=== PATIENT | female | born 1965 | race Caucasian/White ===

== ENCOUNTER 2020-10-18 16:43 | Outpatient (REF) | payer OTHER, SELFPAY ==
--- NOTE | 2020-10-18 14:25 | PAPFT_PTH ---
PATIENT: Isreal LOC: [facility] U#:[id number] AGE/SX: 55/F ROOM: RE10/18/[address]: NIKOLAS Smith : 1965 BED: DIS: 10/18/2020 SPEC #: [id number] RECD: 10/19/20 12:59 STATUS: BROOKS REDebbie #: [id number] LEONARD: 10/18/20 14:[address]: Petrona Covarrubias DEPT: [facility] Cytology RECD BY: Theresa Donovan Tissues: 1 - CX/ENDOCX FOR PAP SMEARS Procedures: PAP THIN PREP/UVM Screening HPV DNA PROBE Comments: [id number]
== END 2020-10-18 17:03 ==
LOC: LBN 16:43
PROVIDERS: PCP Nurse Practitioner Family; Visit Provider Nurse Practitioner Family
DX: Z12.4 Encounter for screening for malignant neoplasm of cervix (principal); Z11.51 Encounter for screening for human papillomavirus (HPV)
CPT/HCPCS: 88142; 87624

== ENCOUNTER 2020-10-27 04:45 | Outpatient (CLI) | payer OTHER, SELFPAY ==
[2020-10-27 08:04] LABS: Hemoglobin A1C 5.7 % (<5.7)
[2020-10-27 09:02] LABS: Anion Gap 11.1 mmol/L (3-11); BUN 15 mg/dL (7-18); CO2 27.9 mmol/L (21.0-32.0); CREATININE 0.77 mg/dL (0.55-1.02); Calcium 9.1 mg/dL (8.5-10.1); Calculated LDL 204 mg/dL (<100); Chloride 101 mmol/L (98-107); Cholesterol 287 mg/dL (<200); Glucose 95 mg/dL (74-106); HDL Cholesterol 53 mg/dL (40-60); Potassium 4.5 mmol/L (3.5-5.1); Sodium 140 mmol/L (136-145); Triglyceride 150 mg/dL (<150)
[2020-10-28 12:50] LABS: ALT 23 U/L (14-59); AST 14 U/L (15-37); Albumin 3.9 g/dL (3.4-5.0); Alkaline Phosphatase 92 U/L (46-116); Bilirubin, Direct 0.07 mg/dL (0.00-0.20); Bilirubin, Total 0.5 mg/dL (0.2-1.0); Total Protein 7.2 g/dL (6.4-8.2)
== END 2020-10-27 05:05 ==
PROVIDERS: PCP Nurse Practitioner Family; Visit Provider Nurse Practitioner Family
DX: Z00.00 Encounter for general adult medical examination without abnormal findings (principal); E78.5 Hyperlipidemia, unspecified; Z13.1 Encounter for screening for diabetes mellitus
CPT/HCPCS: 36415; 80048; 80061; 80076; 83036

== ENCOUNTER 2020-11-02 00:55 | Outpatient (CLI) | payer OTHER, SELFPAY ==
--- NOTE | 2020-11-02 16:17 | DI.MAMMO_ITS ---
EXAM: MG MAMMO SCREENING CLINICAL HISTORY: screening,Z12.39 TECHNIQUE: Bilateral full field digital CC and MLO mammographic images were obtained with 3D tomosyn thesis and utilizing computer aided detection (CAD). COMPARISON: None. FINDINGS: Masses/Architectural Distortion: None seen. Microcalcifications: No suspicious pleomorphic-type are seen. Skin Thickening/Nipple Retraction: None. IMPRESSION: 1. No significant interval change with no specific features of malignancy noted. 2. Unless there is more urgent need, screening mammography is recommended, as per [employer] guidelines. BI-RADS Category 1 - Negative Breast Density - Category A - Almost entirely fatty Breast density category C or D implies that the patient has dense breast tissue. Dense breast tissue is very common and is not abnormal but dense breast tissue can make it harder to find cancer on a ma mmogram. Also, dense breast tissue may increase their breast cancer risk. This information about the result of the mammogram report was provided to the patient to raise their awareness. Use this report when you speak with the patient about their risks for breast cancer, which includes their family hist ory. At that time, you may recommend for more screening tests (Ultrasound or MRI) as they might be us eful based on their risk. A negative radiographic report should not delay biopsy if a dominant or clinically suspicious mass is present. Up to ten percent of cancers are not identified on mammography. A negative report may reinforce clinical impression. Adenosis and dense breasts may obscure an underlying neoplasm. False positive reports average 6 to 10%. Patient will receive a letter notifying them of these results.
== END 2020-11-02 01:15 ==
PROVIDERS: PCP Nurse Practitioner Family; Visit Provider Nurse Practitioner Family
DX: Z12.31 Encounter for screening mammogram for malignant neoplasm of breast (principal)
CPT/HCPCS: 77063; 77067

== ENCOUNTER 2023-03-30 00:40 | Outpatient (CLI) | payer OTHER, SELFPAY ==
--- NOTE | 2023-03-30 08:30 | DI.MAMMO_ITS ---
Exam(s) MAMMO SCREENING EXAM: MAMMO SCREENING CLINICAL HISTORY: screening,z12.39. TECHNIQUE: Bilateral full field digital CC and MLO mammographic images were obtained with 3D tomosyn thesis and utilizing computer aided detection (CAD). COMPARISON: Prior mammograms were reviewed. FINDINGS: There has been no significant change in the appearance and distribution of the fibroglandular tissue. There are no CAD designations. There are no new spiculated masses nor malignant appearing microcalcification groups. There is no significant architectural distortion nor skin thickening-retraction. IMPRESSION: No radiographic evidence of malignancy. BI-RADS Category 1 - Negative Breast Density - Category A - Almost entirely fatty Breast density Category C or D implies that the patient has dense breast tissue. Dense breast tissue can make it harder to find cancer on a mammogram. Dense breast tissue is also associated with an incr eased risk of breast cancer. This information about the result of the mammogram report was provided to the patient to raise their awareness. Use this report when you speak with the patient about their risks for breast cancer, which includes their family history. At that time, you may recommend additional screening tests (Ultrasoun d or MRI) as these tests may add significant information. A negative radiographic report should not delay biopsy if a dominant or clinically suspicious mass is present. Up to ten percent of cancers are not identified on mammography. A negative report may reinforce clinical impression. Adenosis and dense breasts may obscure an underlying neoplasm. False positive reports average 6 to 10%. Patient will receive a letter notifying them of these results.
--- NOTE | 2023-03-30 14:28 | DI.RAD_ITS ---
Exam(s) XR CHEST 2V PA LATERAL EXAM: XR CHEST 2V PA LATERAL CLINICAL HISTORY: chronic cough,r05.3. TECHNIQUE: 2D digital imaging was performed. COMPARISON: CR PORTABLE CHEST ONE VIEW from 07/27/2016 FINDINGS: 2 views: Heart size is normal. The mediastinum is not widened. Lungs are clear. No infiltrates nor pleural effusions. IMPRESSION: No acute pulmonary findings. DATA REPOSITORY: RADIATION DOSE DELIVERED:
== END 2023-03-30 01:00 ==
PROVIDERS: PCP Nurse Practitioner Family; Visit Provider Nurse Practitioner Family
DX: R05.3 Chronic cough (principal); Z12.31 Encounter for screening mammogram for malignant neoplasm of breast
CPT/HCPCS: 77063; 77067; 71046

== ENCOUNTER 2023-04-11 07:08 | Outpatient (CLI) | payer OTHER, SELFPAY ==
[2023-04-11 08:09] LABS: BUN 18 mg/dL (7-18); CREATININE 0.6 mg/dL (0.55-1.02); Calcium 9.3 mg/dL (8.5-10.1); Calculated LDL 117 mg/dL (<100); Chloride 107 mmol/L (98-107); Cholesterol 205 mg/dL (<200); Estimated GFR 104.63 (mL/min/1.73m2); Glucose 90 mg/dL (74-106); HDL Cholesterol 71 mg/dL (40-60); Potassium 4.6 mmol/L (3.5-5.1); Sodium 143 mmol/L (136-145); Triglyceride 87 mg/dL (<150)
[2023-04-11 08:22] LABS: Hemoglobin A1C 5.5 % (<5.7)
== END 2023-04-11 07:09 | disposition home or self-care (01) ==
LOC: LBO 07:08
PROVIDERS: PCP Nurse Practitioner Family; Visit Provider Nurse Practitioner Family
DX: E78.5 Hyperlipidemia, unspecified (principal); R73.03 Prediabetes
CPT/HCPCS: 36415; 80048; 80061; 83036; 84439

== ENCOUNTER 2023-05-14 00:54 | Outpatient (CLI) | payer OTHER, SELFPAY ==
--- NOTE | 2023-05-14 08:45 | DI.MRI_ITS ---
Exam(s) MR UPPER JOINT RT WO EXAM: MR UPPER JOINT RT WO CLINICAL HISTORY: rotator cuff tear? bicep tendinitis?, PAIN RT UPPER ARM, M79.621. TECHNIQUE: Multiplanar multisequence MRI was performed. COMPARISON: None. FINDINGS: BONES: There is no fracture or contusion pattern. Apparent spurring at tip of acromion. Spurring a nd degenerative cysts at lesser tuberosity. JOINTS:The acromioclavicular joint shows mild inferior spurring. The glenohumeral joint is normal. TENDONS: Supraspinatus: Unremarkable. Infraspinatus: Unremarkable. Subscapularis: Unremarkable. [place]: Unremarkable. Biceps and [place]: There is some thickening and intermediate signal in the upper biceps tendon. Ther e is no focal tear. There is a small amount of fluid within the biceps tendon sheath. MUSCLES: Unremarkable. GLENOID LABRUM: Unremarkable on this noncontrast examination. SOFT TISSUES: Unremarkable. OTHER: Subacromial and subdeltoid bursae shows minimal fluid. This could indicate bursal irritation. . IMPRESSION: Biceps tendinosis adjacent to lesser tuberosity. No focal tear.. DATA REPOSITORY:
== END 2023-05-14 01:14 ==
PROVIDERS: PCP Nurse Practitioner Family; Visit Provider Nurse Practitioner Family
DX: M75.21 Bicipital tendinitis, right shoulder; M79.621 Pain in right upper arm
CPT/HCPCS: 73221

== ENCOUNTER 2023-07-19 04:21 | Outpatient (CLI) | payer OTHER, SELFPAY ==
[2023-07-19 13:54] LABS: Calculated LDL 126 mg/dL (<100); Cholesterol 216 mg/dL (<200); HDL Cholesterol 69 mg/dL (40-60); Triglyceride 106 mg/dL (<150)
== END 2023-07-19 04:22 | disposition home or self-care (01) ==
LOC: LOS 04:21
PROVIDERS: PCP Nurse Practitioner Family; Visit Provider Nurse Practitioner Family
DX: E78.5 Hyperlipidemia, unspecified (principal)
CPT/HCPCS: 36415; 80061

== ENCOUNTER 2025-02-17 02:06 | Outpatient (CLI) | payer OTHER, SELFPAY ==
[2025-02-17 07:20] LABS: HCT 46.2 % (36.0-46.0); HGB 15.5 g/dL (11.2-15.7); MCHC 33.5 % (32.0-36.0); MCV 96 fL (80-95); MPV 8.3 fL (8.0-11.0); Platelet Count 257 10^3/uL (130-400); RBC 4.84 10^6/uL (3.93-5.22); RDW 13.4 % (11.7-14.6); WBC 6.22 10^3/uL (4.4-10.8)
[2025-02-17 08:23] LABS: Anion Gap 7.1 mmol/L (3-11); BUN 12 mg/dL (7-18); CO2 26.9 mmol/L (21.0-32.0); CREATININE 0.6 mg/dL (0.55-1.02); Calcium 9.2 mg/dL (8.5-10.1); Calculated LDL 131 mg/dL (<100); Chloride 106 mmol/L (98-107); Cholesterol 234 mg/dL (<200); Estimated GFR 103.33 (mL/min/1.73m2); Glucose 106 mg/dL (74-106); HDL Cholesterol 63 mg/dL (>or=50); Sodium 140 mmol/L (136-145); TSH (W/Ref FT4) 1.02 uIU/mL (0.36-3.74); Triglyceride 202 mg/dL (<150)
[2025-02-18 12:55] LABS: Hepatitis C Ab w Rflx HCV PCR Negative (Negative)
[2025-02-18 13:02] LABS: HBs Antibody, Quant 3.1 mIU/mL (See Note); Hep B Surface Ab Negative (See Note); Hepatitis B Core Antibody Negative (Negative); Hepatitis B Surface Antigen Negative (Negative)
[2025-02-18 13:52] LABS: HIV-1/2 Ag & Ab Screen Negative (Negative)
[2025-02-19 19:16] LABS: Lab Add On Test DONE
[2025-02-20 20:56] LABS: Vitamin B12 288 pg/mL (211-911)
== END 2025-02-17 02:07 | disposition home or self-care (01) ==
LOC: LBO 02:07
PROVIDERS: Family Medicine; PCP Nurse Practitioner Family; Visit Provider Nurse Practitioner Family
DX: Z11.4 Encounter for screening for human immunodeficiency virus [HIV] (principal); Z00.00 Encounter for general adult medical examination without abnormal findings; I10 Essential (primary) hypertension; E78.5 Hyperlipidemia, unspecified; Z11.59 Encounter for screening for other viral diseases
CPT/HCPCS: 36415; 80048; 80061; 85027; 86704; 86706; 86803; 87340; 87389; 82607; 84443

== ENCOUNTER 2025-06-01 08:12 | Outpatient (REF) | payer OTHER, SELFPAY ==
--- NOTE | 2025-06-01 07:45 | PAPFT_PTH ---
PATIENT: Isreal LOC: [facility] U#:[id number] AGE/SX: 59/F ROOM: RE06/01/[address]: NIKOLAS Smith : 1965 BED: DIS: 06/01/2025 SPEC #: [id number] RECD: 06/01/25 12:50 STATUS: BROOKS REDebbie #: [id number] LEONARD: 06/01/25 07:[address]: Petrona Covarrubias DEPT: [facility] Cytology RECD BY: Theresa Donovan Tissues: 1 - CX/ENDOCX FOR PAP SMEARS Procedures: PAP THIN PREP/UVM Screening HPV DNA PROBE Comments: [id number] (HPV 16 & 18/45)
== END 2025-06-01 08:13 | disposition home or self-care (01) ==
LOC: LBN 08:12
PROVIDERS: PCP Nurse Practitioner Family; Visit Provider Nurse Practitioner Family
DX: Z12.4 Encounter for screening for malignant neoplasm of cervix (principal)
CPT/HCPCS: 88142; 87624

== ENCOUNTER 2025-06-10 11:52 | Outpatient (CLI) | payer OTHER, SELFPAY ==
--- NOTE | 2025-06-10 17:05 | DI.MAMMO_ITS ---
Exam(s) MAMMO SCREENING EXAM: MAMMO SCREENING CLINICAL HISTORY: screening,Z12.39 TECHNIQUE: Bilateral full field digital CC and MLO mammographic images were obtained with 3D tomosynthesis and utilizing computer aided detection (CAD). COMPARISON: Comparison is made with prior examinations. FINDINGS: Masses/Architectural Distortion: No suspicious masses or areas of architectural distortion are present. Microcalcifications: No suspicious pleomorphic-type are seen. Skin Thickening/Nipple Retraction: None. IMPRESSION: 1. No significant interval change with no specific features of malignancy noted. 2. Unless there is more urgent need, screening mammography is recommended, as per [employer] guidelines. BI-RADS Category 1 - Negative Breast Density - Category A - The breast are almost entirely fatty. Breast density Category C or D implies that the patient has dense breast tissue. Dense breast tissue can make it harder to find cancer on a mammogram. Dense breast tissue is also associated with an increased risk of breast cancer. This information about the result of the mammogram report was provided to the patient to raise their awareness. Use this report when you speak with the patient about their risks for breast cancer, which includes their family history. At that time, you may recommend additional screening tests (Ultrasound or MRI) as these tests may add significant information. A negative radiographic report should not delay biopsy if a dominant or clinically suspicious mass is present. Up to ten percent of cancers are not identified on mammography. A negative report may reinforce clinical impression. Adenosis and dense breasts may obscure an underlying neoplasm. False positive reports average 6 to 10%. Patient will receive a letter notifying them of these results.
== END 2025-06-10 12:12 ==
LOC: DI 11:53
PROVIDERS: PCP Nurse Practitioner Family; Visit Provider Nurse Practitioner Family
DX: Z12.31 Encounter for screening mammogram for malignant neoplasm of breast (principal); R92.313 Mammographic fatty tissue density, bilateral breasts
CPT/HCPCS: 77063; 77067